=== PATIENT | male | born 1960 | race African-American/Black ===

== ENCOUNTER 2022-08-17 17:32 | Emergency (ER) | payer MEDICAID ==
[~2022-08-17] VITALS: Ht 182.9 cm; Wt 98.0 kg
[2022-08-17 19:02] LABS: BASOPHILS % 0.7 % (0.0-2.0); EOSINOPHILS % 2.7 % (0.0-5.0); HEMATOCRIT. 39.9 % (42.0-52.0); HEMOGLOBIN. 13.5 g/dL (14.0-18.0); LYMPHOCYTES % 29.4 % (20.0-50.0); MEAN CORPUSCULAR HEMOGLOBIN 31.9 pg (28.0-32.0); MEAN CORPUSCULAR VOLUME 94.1 fL (80.0-94.0); MEAN PLATELET VOLUME 6.7 fl (7.4-10.4); MONOCYTES % 6.9 % (2.0-8.0); NEUTROPHILS % 60.3 % (40.0-76.0); PLATELET 301 x1000/uL (130-400); RED BLOOD CELL COUNT 4.24 mill/uL (4.7-6.1); RED CELL DISTRIBUTION WIDTH 16.3 % (11.6-14.6)
[2022-08-17 19:04] LABS: CHLORIDE 104 mEq/L (98-107)
[2022-08-17 19:22] LABS: ETHANOL BLOOD < 10 mg/dL
[2022-08-17 19:38] LABS: VITAMIN B12 SERUM 180 pg/mL (211-911)
[2022-08-17] MEDS ORDERED: MULT-1146 MT (22:18)
[2022-08-17] MEDS ORDERED: FOLIC ACID/VITAMIN B COMP W-C TABLET PO NR (22:30)
[2022-08-18 12:33] VITALS: BP 139/79
== END 2022-08-18 13:35 | disposition home or self-care (01) ==
LOC: ER 17:32 → CANBEDREQ 08-18 20:12
DX: R41.0 Disorientation, unspecified (principal); I10 Essential (primary) hypertension
CPT/HCPCS: 36415; 80053; 80320; 82140; 82607; 82746; 84443; 85025; 86592; 99284; G0480